=== PATIENT | male | born 1960 | race Hispanic/Latino ===

== ENCOUNTER 2021-12-13 12:00 | Observation (INO) | payer OTHER ==
[~2021-12-13] VITALS: Ht 175.3 cm; Wt 88.3 kg
[2021-12-13 10:13] LABS: BASOPHILS % (AUTO) 0.3 % (0.0-5.0); EOSINOPHILS % (AUTO) 2.3 % (0.0-8.0); HEMATOCRIT 43.8 % (42-54); LYMPHOCYTES % (AUTO) 23.8 % (21.0-51.0); MEAN CORPUSCULAR HEMOGLOBIN 27.5 pg (27.0-33.0); MEAN CORPUSCULAR HGB CONC 33.1 g/dL (32.0-36.0); MONOCYTES % (AUTO) 6.6 % (3.0-13.0); NEUTROPHILS % (AUTO) 66.8 % (40.0-77.0); PLATELET COUNT (AUTO) 273 K/uL (130-400); RED BLOOD CELL COUNT(AUTO) 5.28 MIL/uL (4.50-6.20); RED CELL DISTRIBUTION WIDTH 13.3 % (11.0-15.5); WHITE BLOOD COUNT (AUTO) 6.4 K/uL (4.8-10.8)
[2021-12-13 10:25] LABS: CREATININE 0.7 mg/dL (0.5-1.5); POTASSIUM 4.3 mmol/L (3.5-5.1)
[2021-12-13 10:26] LABS: APPEARANCE,URINE CLEAR (CLEAR); BILIRUBIN,URINE NEGATIVE (NEGATIVE); COLOR,URINE YELLOW (YELLOW); GLUCOSE, URINE (UA) NEGATIVE (NEGATIVE); INR 0.98 (0.85-1.15); KETONES,URINE NEGATIVE (NEGATIVE); LEUKOCYTE ESTERASE ,URINE NEGATIVE (NEGATIVE); NITRATE,URINE NEGATIVE (NEGATIVE); OCCULT BLOOD,URINE NEGATIVE (NEGATIVE); PH,URINE 5.5 (5.0-8.0); PROTEIN,URINE NEGATIVE (NEGATIVE); PROTHROMBIN TIME 10.7 SEC (9.6-11.6); UROBILINOGEN,URINE 0.2 mg/dL (0.2-1.0)
[2021-12-13 12:22] VITALS: BP 125/80
[2021-12-13] MEDS ORDERED: NAPR220C15 PO (12:41)
[2021-12-14] VITALS (21 sets, daily range): BP systolic 104–136; BP diastolic 63–85
[2021-12-14] MEDS ORDERED: CEFAZOLIN SODIUM 1 GM VIAL IVP ONE (08:00)
[2021-12-14] MEDS ORDERED: LACTATED RINGERS 1000ML 1,000 ML IV ONE (08:28)
[2021-12-14] MEDS ORDERED: ROPIVACAINE 0.5% 5MG/ML 30ML IJ ONE (10:40)
[2021-12-14] MEDS ORDERED: TRANEXAMIC ACID 1000MG/10ML ONE ×2 (11:39→15:19)
[2021-12-14] MEDS: CEFAZOLIN SODIUM 1 GM VIAL ONE ×2 (12:38→13:50)
[2021-12-14] MEDS ORDERED: SUCCINYLCHOLINE CHLORIDE 20 MG/ML 10 ML VIAL ONE (12:39)
[2021-12-14] MEDS ORDERED: PROPOFOL 10 MG/ML 20ML VIAL IV ONE (12:39)
[2021-12-14] MEDS ORDERED: LIDOCAINE PF 100MG/5ML (2%) SYRINGE 5ML ONE (12:39)
[2021-12-14] MEDS ORDERED: MIDAZOLAM HCL 1 MG/ML 2ML VIAL ONE (12:39)
[2021-12-14] MEDS ORDERED: ROCURONIUM 10MG/1ML SYR 10 MG/ML ML ONE (12:39)
[2021-12-14] MEDS ORDERED: GLYCOPYRROLATE 1 MG/5 ML SYRINGE ONE (12:58)
[2021-12-14] MEDS ORDERED: TRANEXAMIC ACID 1000MG/10ML IV ONE (13:20)
[2021-12-14] MEDS ORDERED: 0.9%NACL 10ML VIAL ONE (13:42)
[2021-12-14] MEDS ORDERED: ONDANSETRON 4MG INJ ONE (15:24)
[2021-12-14] MEDS ORDERED: NEOSTIGMINE 5MG/5ML SYR IV ONE (15:25)
[2021-12-14] MEDS ORDERED: KETOROLAC 15MG/ML VIAL (15MG/ML) IV PRN (15:30)
[2021-12-14] MEDS: 0.9%NACL 1000ML 1,000 ML IV SCH (15:30)
[2021-12-14] MEDS ORDERED: TEMAZEPAM 15 MG CAPSULE PO PRN (15:30)
[2021-12-14] MEDS ORDERED: TRAMADOL HCL 50 MG TABLET PO PRN (15:30)
[2021-12-14] MEDS ORDERED: DiphenhydrAMINE HCL 50 MG/ML VIAL IVP PRN (15:30)
[2021-12-14] MEDS ORDERED: FERROUS FUMARATE 324 MG TABLET PO PRN (15:30)
[2021-12-14] MEDS ORDERED: POTASSIUM CHLORIDE 20MEQ/100ML 100 ML IV PRN (15:30)
[2021-12-14] MEDS ORDERED: CALCIUM CARB 500MG PO PRN (15:30)
[2021-12-14] MEDS ORDERED: OXYCODONE HCL 5 MG TAB PO PRN ×2 (15:30)
[2021-12-14] MEDS ORDERED: ACETAMINOPHEN 500 MG TABLET PO SCH (15:30)
[2021-12-14] MEDS ORDERED: KCL 20 MEQ ERTAB PO PRN (15:30)
[2021-12-14] MEDS ORDERED: LIDOCAINE HCL-MPF 1% 2ML VIAL IV PRN (15:30)
[2021-12-14] MEDS ORDERED: POTASSIUM CHLORIDE 10% ELIXIR 20 MEQ/15 ML UDCUP PO PRN (15:30)
[2021-12-14] MEDS ORDERED: ONDANSETRON 4MG INJ IVP PRN (15:30)
[2021-12-14] MEDS ORDERED: PHENYLEPHRINE HCL 10 MG/ML 1ML VIAL IV ONE (15:54)
[2021-12-14] MEDS ORDERED: KETOROLAC 30MG VIAL (30MG/ML) ONE (16:08)
[2021-12-14] MEDS ORDERED: MEPERIDINE-PF 25 MG/ML SYG ONE ×2 (16:34→16:45)
[2021-12-14] MEDS ORDERED: ACETAMINOPHEN 500 MG TABLET ONE (20:27)
[2021-12-14] MEDS: FAMOTIDINE 20MG TAB PO SCH (20:30)
[2021-12-14] MEDS: ASPIRIN 81 MG EC TAB PO SCH (20:30)
[2021-12-14] MEDS: CELECOXIB 200 MG CAP PO SCH (20:31)
[2021-12-14] MEDS: PREGABALIN 25 MG CAP PO SCH (20:31)
[2021-12-14] MEDS: CEFAZOLIN SODIUM 1 GM VIAL IVP SCH (20:33)
[2021-12-14] MEDS: ACETAMINOPHEN 500 MG TABLET PO SCH (21:05)
[2021-12-15] VITALS: BP 101/55
[2021-12-15] MEDS: 0.9%NACL 1000ML 1,000 ML IV SCH ×2 (00:56→11:30)
[2021-12-15 04:00] VITALS: BP 101/72
[2021-12-15 04:11] LABS: HEMATOCRIT 36.9 % (42-54); MEAN CORPUSCULAR HEMOGLOBIN 27.8 pg (27.0-33.0); MEAN CORPUSCULAR HGB CONC 32.8 g/dL (32.0-36.0); MEAN CORPUSCULAR VOLUME 84.6 fL (79-99); RED BLOOD CELL COUNT(AUTO) 4.36 MIL/uL (4.50-6.20); RED CELL DISTRIBUTION WIDTH 13.4 % (11.0-15.5); WHITE BLOOD COUNT (AUTO) 8.6 K/uL (4.8-10.8)
[2021-12-15] MEDS: CEFAZOLIN SODIUM 1 GM VIAL IVP SCH (04:24)
[2021-12-15] MEDS: ACETAMINOPHEN 500 MG TABLET PO SCH ×3 (04:25→20:54)
[2021-12-15 04:27] LABS: CREATININE 0.8 mg/dL (0.5-1.5); POTASSIUM 4.3 mmol/L (3.5-5.1)
[2021-12-15] MEDS ORDERED: TAMSULOSIN HCL 0.4 MG CAP.ER.24H ONE (06:26)
[2021-12-15] MEDS: TAMSULOSIN HCL 0.4 MG CAP.ER.24H PO SCH (06:28)
[2021-12-15] MEDS ORDERED: TAMSULOSIN HCL 0.4 MG CAP.ER.24H PO SCH (06:30)
[2021-12-15 08:00] VITALS: BP 102/69
[2021-12-15] MEDS: PREGABALIN 25 MG CAP PO SCH ×2 (09:00→20:53)
[2021-12-15] MEDS: CELECOXIB 200 MG CAP PO SCH ×2 (09:48→20:53)
[2021-12-15] MEDS: POLYETHYLENE GLYCOL 3350 17 GM POWD.PACK PO SCH (09:48)
[2021-12-15] MEDS: ASPIRIN 81 MG EC TAB PO SCH ×2 (09:48→20:54)
[2021-12-15] MEDS: FAMOTIDINE 20MG TAB PO SCH ×2 (09:48→20:53)
[2021-12-15 11:46] VITALS: BP 113/68
[2021-12-15 16:00] VITALS: BP 120/63
[2021-12-15 20:00] VITALS: BP 121/58
[2021-12-16] VITALS: BP 100/58
[2021-12-16 04:00] VITALS: BP 119/63
[2021-12-16] MEDS: ACETAMINOPHEN 500 MG TABLET PO SCH ×2 (05:47→14:47)
[2021-12-16] MEDS: CELECOXIB 200 MG CAP PO SCH (07:50)
[2021-12-16] MEDS: ASPIRIN 81 MG EC TAB PO SCH (07:50)
[2021-12-16] MEDS: POLYETHYLENE GLYCOL 3350 17 GM POWD.PACK PO SCH (07:51)
[2021-12-16] MEDS: FAMOTIDINE 20MG TAB PO SCH (07:51)
[2021-12-16] MEDS: TAMSULOSIN HCL 0.4 MG CAP.ER.24H PO SCH (07:51)
[2021-12-16] MEDS: PREGABALIN 25 MG CAP PO SCH (07:51)
[2021-12-16 08:00] VITALS: BP 123/73
[2021-12-16] MEDS ORDERED: BISACODYL 10 MG SUPP.RECT RC PRN (09:30)
[2021-12-16] MEDS ORDERED: HYDR-4060 PO (11:47)
[2021-12-16 11:53] VITALS: BP 121/65
[2021-12-16] MEDS ORDERED: AEC81 PO (12:48)
[2021-12-17] MEDS ORDERED: BISACODYL 10 MG SUPP.RECT RC PRN (15:30)
== END 2021-12-16 17:50 | disposition home health service (06) ==
LOC: INTOOBSV 12-14 07:55 → DAHIP 12-14 07:55 → EDSTATUS 12-14 12:00 → 4AH 12-14 17:20
PROVIDERS: ADMIT Orthopaedic Surgery; ATTEND Orthopaedic Surgery
DX: M17.11 Unilateral primary osteoarthritis, right knee (principal); Z20.822 Contact with and (suspected) exposure to COVID-19; D62 Acute posthemorrhagic anemia; R33.9 Retention of urine, unspecified; K21.9 Gastro-esophageal reflux disease without esophagitis; I10 Essential (primary) hypertension; E66.9 Obesity, unspecified; Z87.891 Personal history of nicotine dependence; Z90.49 Acquired absence of other specified parts of digestive tract; Z96.652 Presence of left artificial knee joint; Z79.899 Other long term (current) drug therapy
CPT/HCPCS: 27447; 36415 ×2; 64447; 76942; 80048 ×2; 81003; 85025; 85027; 85610; 87088; 87635; 87641; 96374; 96376; 97039 ×4; 97116 ×4; 97161; 97530 ×4; A4215; A4221; A4222; A4223; A4600; A4649 ×5; A4663; A6260; A9272; C1776; G0378 ×48; J0330; J0690 ×4; J1885; J2001; J2175 ×2; J2250; J2370; J2405; J2704; J2710; J2795; J3490 ×3; J7030; J7120 ×2